=== PATIENT | male | born 1985 | race Caucasian/White ===

== ENCOUNTER 2023-07-01 16:09 | Emergency (ER) | payer OTHER ==
[~2023-07-01] VITALS: Ht 172.7 cm; Wt 95.0 kg
[2023-07-01 16:20] VITALS: BP 136/87; PULSE 86; RESP 18; TEMP 98
== END 2023-07-01 16:30 | disposition home or self-care (01) ==
LOC: ER 16:09
DX: S80.812A Abrasion, left lower leg, initial encounter (principal); S80.811A Abrasion, right lower leg, initial encounter; F10.129 Alcohol abuse with intoxication, unspecified; Z88.6 Allergy status to analgesic agent; Z88.8 Allergy status to other drugs, medicaments and biological substances; W19.XXXA Unspecified fall, initial encounter; Y93.89 Activity, other specified; Y92.89 Other specified places as the place of occurrence of the external cause; Y99.8 Other external cause status; Y90.9 Presence of alcohol in blood, level not specified
CPT/HCPCS: 99283